=== PATIENT | male | born 1985 | race Caucasian/White ===

== ENCOUNTER 2022-07-06 06:17 | Emergency (ER) | payer SELFPAY ==
[~2022-07-06] VITALS: Ht 185.4 cm; Wt 118.0 kg
[2022-07-06 06:36] VITALS: BP 137/81
[2022-07-06] MEDS ORDERED: IBUPROFEN 600MG TABLET PO ONE (07:15)
[2022-07-06] MEDS ORDERED: AMOXICILLIN/POTASSIUM CLAVULANATE 875/125MG TAB PO ONE (07:15)
[2022-07-06] MEDS ORDERED: TETANUS, DIPHTHERIA, PERTUSSIS VAC/PF 0.5ML (>10YR OLD) IM ONE ×2 (07:15→10:00)
[2022-07-06] MEDS ORDERED: BACITRACIN 15GM TUBE TOP ONE (08:00)
[2022-07-06] MEDS ORDERED: DOLU50TA PO (08:05)
[2022-07-06] MEDS ORDERED: VIRE MT ×2 (08:05)
[2022-07-06] MEDS ORDERED: EMTR1TAB11 MT (08:05)
[2022-07-06] MEDS ORDERED: AMOX1TAB16 MT (08:06)
[2022-07-06] MEDS ORDERED: BACITRACIN ZINC OINT UDPKT TOP ONE (09:30)
[2022-07-06] MEDS ORDERED: IBUPROFEN 600MG TABLET PO NR (09:45)
[2022-07-06] MEDS ORDERED: AMOXICILLIN/POTASSIUM CLAVULANATE 875/125MG TAB PO NR (09:45)
[2022-07-06 19:20] LABS: HEPATITIS B SURFACE ANTIGEN NEGATIVE
[2022-07-07 06:11] LABS: HIV SCREEN 4G Non Reactive (Non Reactive)
== END 2022-07-06 10:32 | disposition home or self-care (01) ==
LOC: ER 06:17
DX: S61.214A Laceration without foreign body of right ring finger without damage to nail, initial encounter (principal); W50.3XXA Accidental bite by another person, initial encounter; Y93.89 Activity, other specified; Y92.89 Other specified places as the place of occurrence of the external cause; Y99.8 Other external cause status
CPT/HCPCS: 36415; 73130; 86803; 87340; 87389; 90471; 90715; 99284